=== PATIENT | male | born 1940 | race Caucasian/White ===

== ENCOUNTER 2021-03-05 18:49 | Emergency (ER) | payer OTHER ==
[~2021-03-05] VITALS: Ht 167.6 cm; Wt 66.7 kg
--- NOTE | 2021-03-05 18:50 | NUR ---
BIBA ALS TAKEN TO BED 36 Addendum: 03/05/21 at 1851 by TOMI BED #6
[2021-03-05 18:51] VITALS: BP 159/82
--- NOTE | 2021-03-05 19:01 | NUR ---
ER MD BEDSIDE EVALUATING PT
--- NOTE | 2021-03-05 19:09 | NUR ---
Pt report given to LASHON POLLOCK. Transfer of care at this time.
--- NOTE | 2021-03-05 19:13 | NUR ---
RECEIVED REPORT FROM LASHON JARAMILLO. TRANSFER OF CARE AT THIS TIME
[2021-03-05 19:37] LABS: BASOPHILS % (AUTO) 0.3 % (0.0-2.0); EOSINOPHILS % (AUTO) 0.5 % (0.0-4.0); HEMATOCRIT 32.4 % (36-52); HEMOGLOBIN 10.8 g/dL (12.0-18.0); LYMPHOCYTES % (AUTO) 16.7 % (20.5-51.1); MEAN CORPUSCULAR HEMOGLOBIN 30 pg (27-31); MEAN CORPUSCULAR HGB CONC 33 g/dL (33-37); MEAN CORPUSCULAR VOLUME 90.5 fL (80-94); MONOCYTES # (AUTO) 0.6 K/uL (0.8-1.0); MONOCYTES % (AUTO) 9.7 % (1.7-9.3); NEUTROPHILS # (AUTO) 4.5 K/uL (1.8-7.7); NEUTROPHILS % (AUTO) 72.8 % (42.2-75.2); PLATELET COUNT (AUTO) 187 K/uL (140-450); RED BLOOD CELL COUNT(AUTO) 3.59 MIL/uL (4.20-6.10); RED CELL DISTRIBUTION WIDTH 15.2 % (11.6-13.7); WHITE BLOOD COUNT (AUTO) 6.2 K/uL (4.8-10.8)
[2021-03-05 19:45] LABS: ANION GAP 13.6 (8-16); CARBON DIOXIDE 25.9 mmol/L (21-32); CHLORIDE 91 mmol/L (98-107); CREATININE 1.5 mg/dL (0.6-1.3); GLUCOSE 126 mg/dL (74-106); POTASSIUM 4.5 mmol/L (3.5-5.1); SODIUM SERUM 126 mmol/L (136-145); UREA NITROGEN, BLOOD 24 mg/dL (7-18)
[2021-03-05] MEDS ORDERED: AMOXIL/CLAVULANATE 875/125 MG 1 TAB PO ONE (20:40)
[2021-03-05] MEDS ORDERED: KETOROLAC 15 MG/ML VIAL IM ONE (20:40)
[2021-03-05] MEDS ORDERED: AMOX-1000 PO (20:44)
--- NOTE | 2021-03-05 21:04 | NUR ---
RECEIVED A CALL FROM DAUGHTER OF PT, ASKING FOR UPDATES.
[2021-03-05 21:19] VITALS: BP 140/60
--- NOTE | 2021-03-05 21:20 | NUR ---
Patient discharged with v/s stable. Written and verbal after care instructions given and explained. Patient verbalized understanding. Ambulatory with steady gait. All questions addressed prior to discharge. Advised to follow up with PMD. RX OF AUGMENTIN GIVEN
== END 2021-03-05 21:20 | disposition home or self-care (01) ==
LOC: MED 18:49
DX: J18.9 Pneumonia, unspecified organism (principal); M54.2 Cervicalgia; K21.9 Gastro-esophageal reflux disease without esophagitis; I10 Essential (primary) hypertension; R51.9 Headache, unspecified; F41.9 Anxiety disorder, unspecified
CPT/HCPCS: 36415; 71045; 80048; 84484; 85025; 93005; 96372; 99285; J1885